=== PATIENT | male | born 1985 | race Caucasian/White ===

== ENCOUNTER 2017-09-17 20:47 | Emergency (ER) | payer SELFPAY ==
[~2017-09-17] VITALS: Ht 180.3 cm; Wt 122.5 kg
[2017-09-17 20:51] VITALS: BP 133/79
--- NOTE | 2017-09-17 20:58 | NUR ---
PT.AMBULATED TO [facility]
--- NOTE | 2017-09-17 21:20 | NUR ---
PATIENT PRESENTS TO ED WITH C/O BLADDER AND TESTICULAR PAIN X 1 WEEK. PT DENIES N/V/D; SKIN IS PINK/WARM/DRY; AAOX4 WITH EVEN AND STEADY GAIT; LUNGS CLEAR BL; HR EVEN AND REGULAR; PT DENIES ANY FEVER, CP, SOB, OR COUGH AT THIS TIME; PATIENT STATES PAIN OF 6/10 AT THIS TIME; VSS; PATIENT POSITIONED FOR COMFORT; HOB ELEVATED; BEDRAILS UP X2; BED DOWN. ER MD MADE AWARE OF PT STATUS.
--- NOTE | 2017-09-17 21:20 | NUR ---
PT AMBULATED TO ER BED 04
[2017-09-17 21:30] LABS: APPEARANCE,URINE CLEAR (CLEAR); BILIRUBIN,URINE NEGATIVE (NEGATIVE); BLOOD, URINE NEGATIVE (NEGATIVE); COLOR,URINE YELLOW (YELLOW); LEUKOCYTE ESTERASE ,URINE NEGATIVE (NEGATIVE); NITRITE, URINE NEGATIVE (NEGATIVE); UGLUCOSE NEGATIVE (NEGATIVE)
--- NOTE | 2017-09-18 00:10 | NUR ---
Patient discharged with v/s stable. Written and verbal after care instructions given and explained to parent/guardian. Parent/Guardian verbalized understanding of instructions. Ambulatory with by parent. All questions addressed prior to discharge. ID band removed. Parent/Guardian advised to follow up with PMD. Rx of NORCO 5MG-325MG given. Parent/Guardian educated on indication of medication including possible reaction and side effects. Opportunity to ask questions provided and answered.
[2017-09-18 00:18] VITALS: BP 122/70
== END 2017-09-18 00:10 | disposition home or self-care (01) ==
LOC: MED 20:47
DX: N50.819 Testicular pain, unspecified (principal)
CPT/HCPCS: 76870; 81003; 99285; Q0092